=== PATIENT | male | born 1955 | race American Indian/Alaskan Native ===

== ENCOUNTER 2021-05-08 20:03 | Emergency (ER) | payer MEDICARE | END 2021-05-08 20:08 | disposition left against medical advice (07) | LOC: ED 20:03 | DX: R10.30 Lower abdominal pain, unspecified (principal); Z53.21 Procedure and treatment not carried out due to patient leaving prior to being seen by health care provider ==

== ENCOUNTER 2022-03-31 07:39 | Emergency (ER) | payer MEDICARE ==
[2022-03-31 10:54] LABS: Amorphous Crystals,Urine 3+; Bilirubin,Urine NEG (Negative); Blood,Urine MOD (Negative); Color,Urine Red (Yellow); Mucus,Urine 2+ /HPF
[2022-03-31 10:55] LABS: WBC,Urine > 182.0 /HPF (0.0-6.0)
[2022-03-31] MEDS ORDERED: LIDOCAINE-MPF (1%) 10 MG/1 ML VIAL 5 ML INFILTRATI ONE (11:24)
[2022-03-31] MEDS ORDERED: ACETAMINOPHEN 325 MG TAB PO ONE (11:25)
--- NOTE | 2022-03-31 11:30 | Emergency Department Report ---
ED Male HPI - General Chief complaint: Urogenital-Male Stated complaint: HAVING PROBLEMS URINATING Time Seen by Provider: 03/31/22 11:18 Source: patient Mode of arrival: Ambulatory Limitations: No Limitations - History of Present Illness Initial comments: 66-year-old black male with past medical history of hypertension presents to the emergency department for evaluation of 3-day history of dysuria, frequency, and urgency. He denies abdominal pain, fever, nausea, vomiting, hematuria, and penile discharge. He denies any known history of prostate problems. He states that he had similar symptoms 1 year ago when he was diagnosed with a kidney stone but unlike that experience, he does not have any pain anywhere at this point. Complaint: dysuria -: Gradual, days(s) (3) Severity scale (0 -10): 0 dysuria. denies: discharge, swelling, mass, rash, urinary retention, blood in urine, fever, nausea/vomiting, incontinence - Related Data Sexually active: Yes Previous Rx's Medication Instructions Recorded Last Taken Type Ciprofloxacin HCl 500 mg PO BID #14 tab 03/31/22 Unknown Rx Allergies Allergy/AdvReac Type Severity Reaction Status Date / Time No Known Allergies Allergy Unverified 03/31/22 07:54 ED Review of Systems ROS: Stated complaint: HAVING PROBLEMS URINATING Other details as noted in HPI Comment: All other systems reviewed and negative Constitutional: denies: chills, fever Eyes: denies: vision change ENT: denies: congestion Respiratory: denies: shortness of breath Cardiovascular: denies: chest pain, palpitations, dyspnea on exertion Gastrointestinal: denies: abdominal pain, nausea, vomiting, diarrhea, hematemesis, melena Genitourinary: urgency, dysuria, frequency. denies: hematuria, discharge, testicular pain, testicular mass Musculoskeletal: denies: back pain Skin: denies: rash, lesions Neurological: denies: headache, weakness ED Past Medical Hx - Past Medical History Hx Hypertension: Yes - Social History Smoking Status: Never Smoker Substance Use Type: None - Medications Home Medications: Home Medications Medication Instructions Recorded Confirmed Last Taken Type Ciprofloxacin HCl 500 mg PO BID #14 tab 03/31/22 Unknown Rx ED Physical Exam - General Limitations: No Limitations General appearance: alert, in no apparent distress - Head Head exam: Present: atraumatic, normocephalic - Eye Eye exam: Present: normal appearance. Absent: conjunctival injection - Neck Neck exam: Present: normal inspection, full ROM. Absent: tenderness, lymphadenopathy - Respiratory Respiratory exam: Present: normal lung sounds bilaterally. Absent: respiratory distress, wheezes, rales, rhonchi, stridor, chest wall tenderness - Cardiovascular Cardiovascular Exam: Present: tachycardia, normal heart sounds - GI/Abdominal GI/Abdominal exam: Present: soft, normal bowel sounds. Absent: distended, tenderness, guarding, rebound, rigid - Extremities Exam Extremities exam: Present: normal inspection, normal capillary refill. Absent: pedal edema, joint swelling, calf tenderness - Back Exam Back exam: Present: normal inspection. Absent: tenderness, CVA tenderness (R), CVA tenderness (L), vertebral tenderness - Neurological Exam Neurological exam: Present: alert, oriented X3, normal gait - Psychiatric Psychiatric exam: Present: normal affect, normal mood - Skin Skin exam: Present: warm, dry, intact, normal color ED Course Vital Signs 03/31/22 07:49 Temperature 100.0 F H Pulse Rate 114 H Respiratory 14 Rate Blood Pressure 132/81 O2 Sat by Pulse 96 Oximetry ED Medical Decision Making - Medical Decision Making 66-year-old black male with past medical history of hypertension presents to the emergency department for evaluation of 3-day history of dysuria, frequency, and urgency. He denies abdominal pain, fever, nausea, vomiting, hematuria, and penile discharge. He denies any known history of prostate problems. He states that he had similar symptoms 1 year ago when he was diagnosed with a kidney stone but unlike that experience, he does not have any pain anywhere at this point. Urine positive for urinary tract infection. Patient had a low-grade fever on admission to the ER at 100.0, so he will be treated with one-time dose of Rocephin IM and discharged home with Cipro 500 mg twice daily for 7 days. He is advised to take medications as prescribed, drink plenty of noncaffeinated fluids, and follow-up with primary care provider or urology if no improvement or worsening symptoms. He is advised to return to the emergency department for any concerning symptoms. He verbalizes understanding of and agreement with plan of care. Critical care attestation.: If time is entered above; I have spent that time in minutes in the direct care of this critically ill patient, excluding procedure time. ED Disposition Clinical Impression: UTI (urinary tract infection) Qualifiers: Urinary tract infection type: acute cystitis Hematuria presence: with hematuria Qualified Code(s): N30.01 - Acute cystitis with hematuria Disposition: HOME / SELF CARE / HOMELESS Is pt being admited?: No Does the pt Need Aspirin: No Condition: Stable Instructions: Antibiotic Medicine, Adult, [id number], Urinary Tract Infection, Adult, [id number] Additional Instructions: Take medications as prescribed. Drink plenty of noncaffeinated fluids. Follow- up with primary care provider or urology if no improvement or worsening symptoms. Return to the emergency department for any concerning symptoms. Prescriptions: Ciprofloxacin HCl 500 mg PO BID #14 tab Referrals: SOBIA PADILLA MD [Staff Physician] - 3-5 Days CAITY YARBROUGH MD [Staff Physician] - 3-5 Days Forms: Work/School Release Form(ED) Time of Disposition: 11:33
[2022-03-31 12:59] VITALS: BP 128/63
== END 2022-03-31 12:57 | disposition home or self-care (01) ==
LOC: ED 07:39
DX: N39.0 Urinary tract infection, site not specified (principal); I10 Essential (primary) hypertension
CPT/HCPCS: 81001; 96372; 99283; J0696; J3490